=== PATIENT | female | born 1940 | race Caucasian/White ===

== ENCOUNTER 2018-11-17 20:25 | Emergency (ER) | payer MEDICARE ==
[~2018-11-17] VITALS: Ht 160 cm; Wt 60.3 kg
--- NOTE | 2018-11-17 21:54 | Diagnostic Imaging Report ---
History:Trauma, fall Comparison studies: None Technique: Axial images were obtained through the maxillofacial region. Coronal and sagittal images reconstructed from the axial data. Dose modulation, iterative reconstruction, and/or weight based adjustment of the mA/kV was utilized to reduce the radiation dose to as low as reasonably achievable. Intravenous contrast: None Findings: Soft tissues: No abnormalities. Bones: No fractures or bone abnormalities. Orbits: Globes: Intact Extra or intraconal abnormalities: None. Paranasal sinuses: Clear IMPRESSION: No maxillofacial abnormalities. Signed by: Dr. Ernesto Yuen M.D. on 11/17/2018 9:51 PM
--- NOTE | 2018-11-17 21:54 | Diagnostic Imaging Report ---
History:Fall Comparison studies: None Technique: Axial images were obtained from the skull base to the vertex. Coronal and sagittal images reconstructed from the axial data. Dose modulation, iterative reconstruction, and/or weight based adjustment of the mA/kV was utilized to reduce the radiation dose to as low as reasonably achievable. Intravenous contrast: None Findings: Scalp/skull: No abnormalities. Extra-axial spaces: No masses. No fluid collections. Brain sulci: Mildly prominent. Ventricles: Mild compensatory dilatation. No hydrocephalus. Parenchyma: Subtle hypodensities in the supratentorial white matter are small vessel ischemic changes. No masses, hemorrhage, acute or chronic cortical vascular insults. Sellar/suprasellar region: No abnormalities. Craniocervical junction: Patent foramen magnum. No Chiari one malformation. Incidental findings: Subtle atherosclerotic calcifications in the carotid siphons . Impression: No acute abnormalities. Chronic findings: 1. Mild generalized volume loss. 2. Mild supratentorial white matter small vessel ischemic changes. Signed by: Dr. Ernesto Yuen M.D. on 11/17/2018 9:51 PM
--- NOTE | 2018-11-17 22:00 | Diagnostic Imaging Report ---
History: Trauma Comparison studies: None Technique: Axial images were obtained through the cervical region.. Coronal and sagittal images reconstructed from the axial data. Dose modulation, iterative reconstruction, and/or weight based adjustment of the mA/kV was utilized to reduce the radiation dose to as low as reasonably achievable. Intravenous contrast: None Findings: Fractures: None. Soft tissues: Focal atherosclerotic calcifications in the carotid bulbs Atlantoaxial articulation: Moderately degenerated. Alignment: Reversal of the usual lordosis is centered at C5. No scoliosis. Cervicomedullary junction: No abnormalities. The foramen magnum is patent. Vertebrae: The bones are mildly demineralized. 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 No infection or neoplasm. Degenerative changes: 1. Mildly degenerated discs from C4 to C7. 2. Mild spinal canal stenosis from C4 to C7 due to disc osteophyte complexes. 3. Foraminal stenosis from C4 to C7 is severe right at C4-5, moderate right at C6-7 due to facet and uncoarthrosis. 4. Additional bilateral facet arthrosis at C2-C3 and C7-T1 but the foramina are patent. IMPRESSION: No acute abnormalities. No fractures Cannot adequately evaluate for ligament, spinal cord and or vascular abnormalities. Degenerative spinal canal and foraminal stenosis as described. Signed by: Dr. Ernesto Yuen M.D. on 11/17/2018 9:57 PM
[2018-11-17 22:07] VITALS: BP 152/83
== END 2018-11-17 22:19 | disposition home or self-care (01) ==
LOC: FSED 20:25
DX: S00.33XA Contusion of nose, initial encounter (principal); S00.531A Contusion of lip, initial encounter; S00.83XA Contusion of other part of head, initial encounter; W01.0XXA Fall on same level from slipping, tripping and stumbling without subsequent striking against object, initial encounter; Y92.488 Other paved roadways as the place of occurrence of the external cause; I51.9 Heart disease, unspecified; G98.8 Other disorders of nervous system
CPT/HCPCS: 70450; 70486; 72125; 99283